=== PATIENT | female | born 1965 | race Caucasian/White ===

== ENCOUNTER 2018-06-04 02:33 | Observation (INO) ==
[2018-06-04] MEDS ORDERED: *HR* FentaNYL (PF) 100 MCG/2 ML VIAL IVP ONE (03:34)
[2018-06-04 03:54] LABS: Basophils # 0.1 K/mcL (0.0-0.2); Basophils % 1.1 %; Eosinophils # 0.3 K/mcL (0.0-0.6); Eosinophils % 4.9 %; Hematocrit 38.2 % (35.3-44.9); Hemoglobin 12.6 g/dL (11.5-15.4); Immature Granulocytes % 0.2 % (0-4); Lymphocytes % 34.3 %; Mean Corpuscular Hemoglobin 29.7 pg (28.0-33.3); Mean Corpuscular Volume 90.1 fL (83.0-100.0); Mean Platelet Volume 9.2 fL (9.4-12.4); Monocytes # 0.6 K/mcL (0.0-1.3); Monocytes % 10.9 %; Neutrophils # 2.8 K/mcL (1.6-8.9); Platelet Count 261 K/mcL (140-400); Red Blood Count 4.24 M/mcL (3.82-4.97); Segmented Neutrophils % 48.6 %
[2018-06-04 04:01] LABS: Prothrombin Time 11.5 Seconds (9.4-12.1)
--- NOTE | 2018-06-04 04:03 | Emergency Department Note ---
Disposition Clinical Impression: Syncope Qualifiers: Syncope type: unspecified Qualified Code(s): R55 - Syncope and collapse Disposition: Admitted As Inpatient Condition: Fair Syncope HPI - General Chief Complaint: ED Syncope Stated Complaint: SYNCOPE Time Seen by Provider: 06/04/18 02:34 Source: patient, family Mode of arrival: private vehicle Limitations: no limitations Nursing Notes Reviewed: Yes Vital Signs Reviewed: Yes - History of Present Illness HPI Narrative: 52-year-old female with a past medical history of asthma and acid reflux presents emergency department for evaluation of a syncopal episode. Patient states she was asleep and she got up in a cold sweat which is normal for her as she is menopausal, she was ambulated to the bathroom and the next thing she remembers was waking up on the floor with a "goose egg to my face" and a headache behind her left eye. Patient is unsure how long she was on the floor. She states when she woke up she was not confused, she was slightly nauseous. She has had no episodes of emesis. Patient states no history of syncope, orthostatic hypotension, vasovagal responses. She states she did restart her Zoloft today after not taking it for months. Patient denies recent illness, fever, chills, shortness of breath, dyspnea, coughing, and ear infections, abdominal pain, nausea, vomiting, diarrhea. Pt Subjective Complaint: loss of consciousness Onset (ago): Just [employer]POOL [employer]ER Prodromal Symptoms: none Witnessed: no Context: other (While walking after getting out of bed) Injuries Sustained Associated with Event: face Current Symptoms: headache History: none Treatments prior to arrival: none - Related Data Home Medications Medication Instructions Recorded Confirmed Fluticasone/Salmeterol [Advair 1 puff IH HS 09/29/17 06/04/18 100-50 Diskus] Ibuprofen [Ibuprofen] 800 mg PO TID PRN 09/29/17 06/04/18 Omeprazole [PriLOSEC] 20 mg PO DAILY 09/29/17 06/04/18 Allergies Allergy/AdvReac Type Severity Reaction Status Date / Time Cefaclor Allergy Difficulty Verified 06/04/18 07:09 Breathing All systems ED: reviewed and negative except as stated. Review of Systems: As Per HPI Past Medical History - Past Medical History Attestation: Yes The following information was validated with the patient. Source: patient Medical history: Reports: asthma, GERD Surgical history: Reports: Psychiatric history: Reports: no psych history - Social History Smoking Status: Never smoker Smokeless Tobacco Status: No Alcohol use: Reports: none Drug use: Reports: none Physical Exam - General Limitations: no limitations General appearance: alert, in no apparent distress - Expanded Head Exam Head exam physicial: Present: contusion, hematoma. Absent: laceration, abrasion , raccoon eyes, Li's sign, tenderness of temporal artery, CSF rhinorrhea, CSF otorrhea 1 - Slight swelling, ecchymosis, tenderness to touch. - Eye Eye exam: Present: normal appearance, PERRL, EOMI, periorbital swelling, periorbital tenderness. Absent: scleral icterus, conjunctival injection, nystagmus - ENT ENT exam: mucous membranes moist - Neck Neck exam: Present: normal inspection, full ROM, trachea midline, tenderness ( Paraspinally spine). Absent: meningismus - Chest Chest inspection: Present: normal inspection, symmetric chest wall rise - Respiratory Respiratory exam: Present: normal lung sounds bilaterally - Cardiovascular Cardiovascular exam: Present: regular rate, normal rhythm, normal heart sounds - Abdominal Exam Abdominal exam: Present: soft, Non-Tender, normal bowel sounds. Absent: tenderness, distention, guarding, rebound, rigidity - Extremities Exam Extremities exam: Present: normal inspection, full ROM. Absent: tenderness, pedal edema - Expanded Lower Extremity Exam Neurovascular/Tendon exam: Absent: pulse deficit, motor deficit, sensory deficit , tendon deficit Gait: observed and normal - Back Exam Back exam: Present: normal inspection, full ROM. Absent: tenderness - Neurological Exam Neurological exam: Present: alert, oriented X3, CN II-XII intact, normal gait. Absent: motor sensory deficit - Expanded Neurological Exam Patient oriented to: Present: person, place, time Speech: Present: fluid speech Cerebellar function: normal gait Motor strength - LUE: 5/5 Motor strength - RUE: 5/5 Motor strength - LLE: 5/5 Motor strength - RLE: 5/5 Coma Scale Eye Opening: Spontaneous Coma Scale Motor Response: Obeys Commands Coma Scale Verbal Response: Oriented Coma Scale Total: 15 - Psychiatric Psychiatric exam: Present: normal affect, normal mood - Skin Skin exam: Present: warm, dry, intact, normal color Course Course Narrative: Nontoxic appearing female who is well-hydrated. Respirations are easy and even. Patient was placed in cervical collar due to complaints of neck pain with movement. Patient is alert and oriented 3, GCS 15, neurologically intact , finding gross motor skills intact. Left upper orbit/forehead with hematoma, tenderness to touch.PEARRL, EOMIs intact without signs of entrapment. Cervical paraspinal tenderness with palpation. Rest of physical exam benign. Glucose upon arrival 112, EKG revealed sinus rhythm with early repolarization, ventricle rate 73 bpm, MI interval 195 ms, QTC 402 ms. no previous EKG for comparison. Labs are benign. Chest x-ray is benign. Head CT without acute cranial abnormality, hematoma without fracture. Cervical spine without acute abnormality, release from c-collar with full range of motion, stiffness to paraspinal areas continues. Patient has been vitally stable, resting comfortably. Syncopal event without witnesses, unknown etiology. Discussed with patient possible causes of the, referred in for her to be matted to the hospital for continuing monitoring and evaluation by cardiology, patient is agreeable to plan of care. We will page hospitalist for admission to the hospital. Case discussed with Dr. Farrukh Wyatt with agreement to POC - Reevaluation(s) Reevaluation #1: Spoke with hospitalist regarding admission, acceptance to floor for further evaluation. Time: 06:15 Vital Signs Temperature 97.3 F L 06/04/18 02:34 Pulse Rate 70 06/04/18 02:34 Respiratory Rate 16 06/04/18 02:34 Blood Pressure 128/75 06/04/18 02:34 O2 Sat by Pulse Oximetry 98 06/04/18 02:34 Temperature 98.0 F 06/04/18 18:51 Pulse Rate 68 06/04/18 18:51 Respiratory Rate 14 06/04/18 20:31 Blood Pressure 130/77 06/04/18 18:51 O2 Sat by Pulse Oximetry 98 06/04/18 20:31 Oxygen Delivery Oxygen Delivery Room Air Syncope - Differential Diagnosis Likely: syncope due to orthostatic hypotension, vasovagal syncope, dehydration/ metabolic disorder, trauma secondary to event. Unlikely: complete atrioventricular block, intracerebral hemorrhage, pulmonary embolism - Lab Data Lab results reviewed: Yes I reviewed the patient's lab results. Result diagrams: 06/04/18 03:37 06/04/18 03:37 Lab Results 06/04/18 06/04/18 06/04/18 Range/Units 03:05 03:37 03:37 WBC 5.7 (4.3-11.1) K/mcL RBC 4.24 (3.82-4.97) M/mcL Hgb 12.6 (11.5-15.4) g/dL Hct 38.2 (35.3-44.9) % MCV 90.1 (83.0-100.0) fL MCH 29.7 (28.0-33.3) pg MCHC 33.0 (31.6-35.5) g/dL RDW 12.0 (11.5-14.5) % Plt Count 261 (140-400) K/mcL MPV 9.2 L (9.4-12.4) fL Immature Gran % 0.2 (0-4) % Seg Neutrophils % 48.6 % Lymphocytes % 34.3 % Monocytes % 10.9 % Eosinophils % 4.9 % Basophils % 1.1 % Neutrophils # 2.8 (1.6-8.9) K/mcL Lymphocytes # 2.0 (0.6-4.6) K/mcL Monocytes # 0.6 (0.0-1.3) K/mcL Eosinophils # 0.3 (0.0-0.6) K/mcL Basophils # 0.1 (0.0-0.2) K/mcL PT 11.5 (9.4-12.1) Seconds INR 1.0 APTT 29.2 (26.0-36.0) Seconds Sodium (136-145) mEq/L Potassium (3.5-5.1) mEq/L Chloride (98-107) mEq/L Carbon Dioxide (23-29) mEq/L BUN (6-20) mg/dL Creatinine (0.60-1.20) mg/dL Est GFR ( Amer) (> 60) Est GFR (Non-Af Amer) (> 60) BUN/Creatinine Ratio (6-26) Glucose (70-105) mg/dL POC Glucose 112 H (70-99) mg/dL Calculated Osmolality (280-300) Calcium (8.6-10.3) mg/dL Troponin I (< 0.04) ng/mL 06/04/18 Range/Units 03:37 WBC (4.3-11.1) K/mcL RBC (3.82-4.97) M/mcL Hgb (11.5-15.4) g/dL Hct (35.3-44.9) % MCV (83.0-100.0) fL MCH (28.0-33.3) pg MCHC (31.6-35.5) g/dL RDW (11.5-14.5) % Plt Count (140-400) K/mcL MPV (9.4-12.4) fL Immature Gran % (0-4) % Seg Neutrophils % % Lymphocytes % % Monocytes % % Eosinophils % % Basophils % % Neutrophils # (1.6-8.9) K/mcL Lymphocytes # (0.6-4.6) K/mcL Monocytes # (0.0-1.3) K/mcL Eosinophils # (0.0-0.6) K/mcL Basophils # (0.0-0.2) K/mcL PT (9.4-12.1) Seconds INR APTT (26.0-36.0) Seconds Sodium 138 (136-145) mEq/L Potassium 3.8 (3.5-5.1) mEq/L Chloride 104 (98-107) mEq/L Carbon Dioxide 25 (23-29) mEq/L BUN 19 (6-20) mg/dL Creatinine 0.76 (0.60-1.20) mg/dL Est GFR ( Amer) > 60 (> 60) Est GFR (Non-Af Amer) > 60 (> 60) BUN/Creatinine Ratio 25 (6-26) Glucose 116 H (70-105) mg/dL POC Glucose (70-99) mg/dL Calculated Osmolality 289 (280-300) Calcium 9.8 (8.6-10.3) mg/dL Troponin I < 0.03 (< 0.04) ng/mL - Radiology Data Radiology results reviewed: Yes I reviewed the patient's radiology results. Chest X-Ray 06/04/18 02:37 IMPRESSION: 1. No acute cardiopulmonary disease. D/ / Brenden Parker MD / Brenden Parker MD Interpreting Provider: Brenden Parker MD Cervical Spine CT 06/04/18 03:32 IMPRESSION: No acute abnormality of the cervical spine. D/ / Juan Carlos Singh MD / Juan Carlos Singh MD Interpreting Provider: Juan Carlos Singh MD Head CT 06/04/18 03:32 IMPRESSION: Left supraorbital scalp hematoma with no acute intracranial abnormality. Bilateral sinus disease. D/ / Juan Carlos Singh MD / Juan Carlos Singh MD Interpreting Provider: Juan Carlos Singh MD - EKG Data EKG attestation: Yes I reviewed and interpreted this EKG.
[2018-06-04 04:04] LABS: Activated Partial Thrombo Time 29.2 Seconds (26.0-36.0)
[2018-06-04 04:21] LABS: BUN/Creatinine Ratio 25 (6-26); Blood Urea Nitrogen 19 mg/dL (6-20); Calcium 9.8 mg/dL (8.6-10.3); Carbon Dioxide 25 mEq/L (23-29); Chloride 104 mEq/L (98-107); Glucose 116 mg/dL (70-105); Osmolality,Calculated 289 (280-300); Potassium 3.8 mEq/L (3.5-5.1); Sodium 138 mEq/L (136-145); Troponin I < 0.03 ng/mL (< 0.04); eGFR For Non-African Americans > 60 (> 60)
[2018-06-04] MEDS ORDERED: Ondansetron 4 MG/2 ML VIAL IVP ONE (05:08)
[2018-06-04] MEDS ORDERED: Orphenadrine 100 MG TABLET.ER PO ONE ×2 (05:22→16:02)
--- NOTE | 2018-06-04 06:07 | Emergency Department Note ---
Disposition Clinical Impression: Syncope Disposition: Still a Patient Condition: Fair Referrals: Ean Durbin Jr, MD [Primary Care Provider] - Forms: ED Satisfaction Letter General Adult HPI - General Chief complaint: ED Syncope Stated complaint: SYNCOPE Time Seen by Provider: 06/04/18 02:34 Source: patient, family Mode of arrival: private vehicle Limitations: no limitations Nursing Notes Reviewed: Yes Vital Signs Reviewed: Yes - History of Present Illness Pain Scale: 3 - Related Data Home Medications Medication Instructions Recorded Confirmed Ethinyl Estradiol/Drospirenone 1 each PO DAILY 09/29/17 09/29/17 [Parris 28 Tablet] Fluticasone/Salmeterol [Advair 1 puff IH BID 09/29/17 09/29/17 100-50 Diskus] Ibuprofen [Ibuprofen] 800 mg PO TID 09/29/17 09/29/17 Levalbuterol Tartrate 2 puff IH Q6H PRN 09/29/17 09/29/17 [Levalbuterol Tartrate Hfa] Omeprazole [PriLOSEC] 20 mg PO DAILY 09/29/17 09/29/17 Allergies Allergy/AdvReac Type Severity Reaction Status Date / Time Cefaclor Allergy Difficulty Verified 06/04/18 02:34 Breathing Past Medical History - Past Medical History Medical history: Reports: asthma, GERD Surgical history: Reports: Psychiatric history: Reports: no psych history - Social History Smoking Status: Never smoker Smokeless Tobacco Status: No Alcohol use: Reports: none Drug use: Reports: none Physical Exam - General Limitations: no limitations General appearance: alert, in no apparent distress Course Vital Signs Temperature 97.3 F L 06/04/18 02:34 Pulse Rate 70 06/04/18 02:34 Respiratory Rate 16 06/04/18 02:34 Blood Pressure 128/75 06/04/18 02:34 O2 Sat by Pulse Oximetry 98 06/04/18 02:34 Temperature 97.3 F L 06/04/18 02:34 Pulse Rate 80 06/04/18 05:30 Respiratory Rate 16 06/04/18 04:33 Blood Pressure 132/84 06/04/18 05:30 O2 Sat by Pulse Oximetry 98 06/04/18 04:33 Oxygen Delivery Oxygen Delivery Room Air Medical Decision Making - Lab Data Result diagrams: 06/04/18 03:37 06/04/18 03:37 Lab Results 06/04/18 06/04/18 06/04/18 Range/Units 03:05 03:37 03:37 WBC 5.7 (4.3-11.1) K/mcL RBC 4.24 (3.82-4.97) M/mcL Hgb 12.6 (11.5-15.4) g/dL Hct 38.2 (35.3-44.9) % MCV 90.1 (83.0-100.0) fL MCH 29.7 (28.0-33.3) pg MCHC 33.0 (31.6-35.5) g/dL RDW 12.0 (11.5-14.5) % Plt Count 261 (140-400) K/mcL MPV 9.2 L (9.4-12.4) fL Immature Gran % 0.2 (0-4) % Seg Neutrophils % 48.6 % Lymphocytes % 34.3 % Monocytes % 10.9 % Eosinophils % 4.9 % Basophils % 1.1 % Neutrophils # 2.8 (1.6-8.9) K/mcL Lymphocytes # 2.0 (0.6-4.6) K/mcL Monocytes # 0.6 (0.0-1.3) K/mcL Eosinophils # 0.3 (0.0-0.6) K/mcL Basophils # 0.1 (0.0-0.2) K/mcL PT 11.5 (9.4-12.1) Seconds INR 1.0 APTT 29.2 (26.0-36.0) Seconds Sodium (136-145) mEq/L Potassium (3.5-5.1) mEq/L Chloride (98-107) mEq/L Carbon Dioxide (23-29) mEq/L BUN (6-20) mg/dL Creatinine (0.60-1.20) mg/dL Est GFR ( Amer) (> 60) Est GFR (Non-Af Amer) (> 60) BUN/Creatinine Ratio (6-26) Glucose (70-105) mg/dL POC Glucose 112 H (70-99) mg/dL Calculated Osmolality (280-300) Calcium (8.6-10.3) mg/dL Troponin I (< 0.04) ng/mL 08/09/18 Range/Units 03:37 WBC (4.3-11.1) K/mcL RBC (3.82-4.97) M/mcL Hgb (11.5-15.4) g/dL Hct (35.3-44.9) % MCV (83.0-100.0) fL MCH (28.0-33.3) pg MCHC (31.6-35.5) g/dL RDW (11.5-14.5) % Plt Count (140-400) K/mcL MPV (9.4-12.4) fL Immature Gran % (0-4) % Seg Neutrophils % % Lymphocytes % % Monocytes % % Eosinophils % % Basophils % % Neutrophils # (1.6-8.9) K/mcL Lymphocytes # (0.6-4.6) K/mcL Monocytes # (0.0-1.3) K/mcL Eosinophils # (0.0-0.6) K/mcL Basophils # (0.0-0.2) K/mcL PT (9.4-12.1) Seconds INR APTT (26.0-36.0) Seconds Sodium 138 (136-145) mEq/L Potassium 3.8 (3.5-5.1) mEq/L Chloride 104 (98-107) mEq/L Carbon Dioxide 25 (23-29) mEq/L BUN 19 (6-20) mg/dL Creatinine 0.76 (0.60-1.20) mg/dL Est GFR ( Amer) > 60 (> 60) Est GFR (Non-Af Amer) > 60 (> 60) BUN/Creatinine Ratio 25 (6-26) Glucose 116 H (70-105) mg/dL POC Glucose (70-99) mg/dL Calculated Osmolality 289 (280-300) Calcium 9.8 (8.6-10.3) mg/dL Troponin I < 0.03 (< 0.04) ng/mL Attestation Statement - Attestation Attestation: I, Jorge Wyatt, examined this patient and my medical decision-making was reviewed with the CUSTOMER EXPERIENCE RETAIL CLERK/PA/Advanced Practice Nurse/Resident Physician. I agree with the documented findings, disposition and treatment plan as described except to the extent set forth below. 52-year-old female presents emergency Department with concerns of a syncopal event. Patient states she woke during the night, tried to walk to the bathroom and syncopized and woke on the ground. Patient has pain to the left periorbital area with obvious ecchymosis and edema. There is no restriction to extraocular eye movement on range of motion. No history of vasovagal episode in the past. Patient denied chest pain or shortness of breath. She did mention that she took a Zoloft last night after not having taken it for a while. Patient will be admitted to the hospital for further care and evaluation.
--- NOTE | 2018-06-04 08:26 | Internal Med History&Physical ---
Date of Encounter: 06/04/18 Time of Encounter: 08:24 Internal Medicine - H&P: HPI Chief complaint: syncope Admitted From: Emergency Dept Plans for Post Hospital Care: Home History of present illness: Ms. Hernández is a 52 year old female Patient with history of asthma, GERD, no cardiac event history in the past. Patient woke up feeling sweaty and some nausea and decided to go to the bathroom before she make it to the bathroom patient passed out then she got up and came and let the know what happenned that she has passed out and then brought into the emergency room has a mild left periorbital ecchymosis CT of the head was unremarkable EKG is normal troponin is negative patient been admitted for evaluation of syncope. Denies prior syncope no cardiac event history in the past no chest pain or shortness of breath. Past Med Surg Social Fam HX - Past Medical History Medical history: asthma, GERD Psychiatric history: no psych history - Past Surgical History Surgical History: Additional surgical history: tubal ligation - Social History Smoking Status: Never smoker Smokeless Tobacco Status: No Alcohol use: none Drug use: none Internal Medicine - H&P: Meds Fluticasone/Salmeterol [Advair 100-50 Diskus] 1 puff IH HS 09/29/17 [History] Ibuprofen [Ibuprofen] 800 mg PO TID PRN 09/29/17 [History] Omeprazole [PriLOSEC] 20 mg PO DAILY 09/29/17 [History] 3 Allergy/AdvReac Type Severity Reaction Status Date / Time Cefaclor Allergy Difficulty Verified 06/04/18 07:09 Breathing All Systems PM: A 10-system review of systems was performed and is negative for pertinent findings except as documented above in the HPI. - Constitutional Vitals: Temp Pulse Resp BP Pulse Ox 97.3 F L 74 15 110/89 98 06/04/18 02:34 06/04/18 07:44 06/04/18 07:44 06/04/18 07:44 06/04/18 07:44 - Head Head exam: Present: atraumatic, normocephalic - Eye Eye exam: Present: PERRL, conjuntiva pink, sclera anicteric Pupils: Present: PERRL - Neck Neck exam general surgery: Present: supple, trachea midline. Absent: lymphadenopathy - Respiratory Respiratory exam: Present: CTAB. Absent: accessory muscle use, rales, rhonchi, wheezes - Cardiovascular Cardiovascular exam: Present: RRR, +S1, +S2. Absent: diastolic murmur, gallop, rubs, systolic murmur - GI/Abdominal GI/Abdominal exam: Present: normal bowel sounds, soft, no peritoneal signs. Absent: distended, tenderness - Extremities Exam Extremities exam: Present: warm, radial pulses palpable and symmetrical. Absent : calf tenderness, cyanotic, pedal edema - Neurological Exam Neurological exam: Present: CN II-XII intact, oriented X3, no focal deficits. Absent: pronater drift, facial droop, speech deficit - Skin Skin exam: Present: dry, intact Internal Med - H&P Results - Labs CBC & Chem 7: 06/04/18 03:37 06/04/18 03:37 Labs: Short CBC 06/04/18 Range/Units 03:37 WBC 5.7 (4.3-11.1) K/mcL Hgb 12.6 (11.5-15.4) g/dL Hct 38.2 (35.3-44.9) % Plt Count 261 (140-400) K/mcL Neutrophils # 2.8 (1.6-8.9) K/mcL BMP 06/04/18 03:37 Sodium 138 Potassium 3.8 Chloride 104 Carbon Dioxide 25 BUN 19 Creatinine 0.76 Glucose 116 H Calcium 9.8 Cardiac Enzymes 06/04/18 Range/Units 03:37 Troponin I < 0.03 (< 0.04) ng/mL - Impressions ITS Impressions Chest X-Ray 06/04/18 02:37 IMPRESSION: 1. No acute cardiopulmonary disease. D/ / Brenden Parker MD / Brenden Parker MD Interpreting Provider: Brenden Parker MD Cervical Spine CT 06/04/18 03:32 IMPRESSION: No acute abnormality of the cervical spine. D/ / Juan Carlos Singh MD / Juan Carlos Singh MD Interpreting Provider: Juan Carlos Singh MD Head CT 06/04/18 03:32 IMPRESSION: Left supraorbital scalp hematoma with no acute intracranial abnormality. Bilateral sinus disease. D/ / Juan Carlos Singh MD / Juan Carlos Singh MD Interpreting Provider: Juan Carlos Singh MD - Assessment and plan (1) GERD (gastroesophageal reflux disease) Current Visit: Yes Status: Chronic Assessment and plan: Chronic we will continue home medication Qualifiers: Esophagitis presence: without esophagitis Qualified Code(s): K21.9 - Gastro -esophageal reflux disease without esophagitis (2) Syncope Current Visit: Yes Status: Acute Assessment and plan: Presentation presented with sweating, nausea and then passed out is suggestive of vasovagal syncope versus vasodepressive syncope patient admitted for syncope workup will obtain 2-D echo keep her on tele monitor and consult cardiology for further evaluation. Qualifiers: Syncope type: vasovagal syncope Qualified Code(s): R55 - Syncope and collapse - Time Spent With Patient Total time spent is greater than 50% in coordination of care (as documented) at patient's floor/unit and/or counseling patient:
[2018-06-04] MEDS ORDERED: Naloxone 0.4 MG/ML INJ IVP PRN (08:29)
[2018-06-04] MEDS ORDERED: Ibuprofen 800 MG TABLET PO PRN (08:32)
--- NOTE | 2018-06-04 09:44 | Cardiology Consult Note ---
Date of Encounter: 06/04/18 Time of Encounter: 09:44 Assessment and Plan (1) Syncope Current Visit: Yes Status: Acute Presented with syncopal event--felt nauseous and diaphoretic, got out of bed to walk to the bathroom and passed out. Possible vasovagal. Denies chest pain or dyspnea. Orthostatic vitals negative. Initial troponin negative. Denies prior cardiac hx. EKG no significant findings. Reports the only thing she did out of normal routine yesterday was took 50mg Zoloft tablet ~8PM. Was on Zoloft months ago, was restarting it to help with anxiety. Agree with TTE to evaluate structure and function. Will order for pt to be placed on telemetry to monitor for any underlying arrhythmias. Check Mag and TSH. K WNL. Continue to follow. Will discuss and review with Dr. Kearney. Qualifiers: Syncope type: unspecified Qualified Code(s): R55 - Syncope and collapse Discussion w patient/family: The assessment and plan as outlined above was discussed with the patient and/or family members who expressed understanding and agreement. All questions were answered. Thank you for involving us in the care of your patient. Please call with any questions. I will discuss and review with Dr. Kearney and make changes as necessary. History of Present Illness Consult date: 06/04/18 Requesting physician: Zee Mir Consult reason: syncope Chief complaint: syncope History of present illness: Ms. Cousins is a 52 year old female with PMH of asthma and GERD that presented to ED after an episode of syncope. Patient woke up ~1AM diaphoretic and nauseous , decided to go to the bathroom, but before she made it to the bathroom she passed out, unsure for how long. She was then brought into the ED. Of note, pt has left periorbital ecchymosis. CT of the head showed left supraorbital scalp hematoma with no acute intracranial abnormality. Bilateral sinus disease. EKG no significant findings and initial troponin negative. Pt denies prior hx of syncope. Denies cardiac hx or family cardiac hx. Reports the only thing she did different yesterday was took a 50mg Zoloft tablet for anxiety. She had not taken Zoloft for months, but was planning on restarting it to help with anxiety. Orthostatic vitals negative. Cardiology consulted for further recs. Pt denies chest pain or dyspnea, denies palpitations, dizziness or lightheadedness. Past Med Surg Social Fam HX - Past Medical History Medical history: asthma, GERD Psychiatric history: no psych history - Past Surgical History Surgical History: Additional surgical history: tubal ligation - Social History Smoking Status: Never smoker Smokeless Tobacco Status: No Alcohol use: none Drug use: none Medications and Allergies Fluticasone/Salmeterol [Advair 100-50 Diskus] 1 puff IH HS 09/29/17 [History] Ibuprofen [Ibuprofen] 800 mg PO TID PRN 09/29/17 [History] Omeprazole [PriLOSEC] 20 mg PO DAILY 09/29/17 [History] 3 Allergy/AdvReac Type Severity Reaction Status Date / Time Cefaclor Allergy Difficulty Verified 06/04/18 07:09 Breathing All Systems Review: The remainder of the systems were reviewed and are negative - Cardiovascular Cardiovascular: as per HPI, diaphoresis, syncope - Gastrointestinal Gastrointestinal: nausea - Neurological Neurological: syncope Physical Examination Vital Signs, Last 4 Hours Pulse Resp BP Pulse Ox 06/04/18 08:47 65 15 130/88 97 Vital Signs Temp Pulse Pulse Pulse Pulse Resp BP 06/04/18 08:47 65 15 130/88 06/04/18 07:44 74 15 110/89 06/04/18 05:30 80 76 96 06/04/18 04:33 74 16 132/76 06/04/18 02:34 97.3 F L 70 16 128/75 BP BP BP Pulse Ox 06/04/18 08:47 97 06/04/18 07:44 98 06/04/18 05:30 132/84 132/81 129/80 06/04/18 04:33 98 06/04/18 02:34 98 Intake and Output 06/03/18 06/04/18 06/04/18 23:59 07:59 15:59 Other: Weight 58.967 kg Blood Glucose* 112 Patient Weight 06/04/18 23:59 Weight 58.967 kg General: Conversant, No Apparent Distress HEENT: Atraumatic, Normocephaly, Mucus Membranes Moist Neck: No JVD, Normal carotid pulses Cardiac: Reg Rate and Rhythm, Normal S1 and S2, No Murmur Lungs: Normal Breath Sounds, No Wheeze, Rales, Rhonchi Neuro: Alert and responsive, No focal deficits noted Abdomen: Soft, Non-Tender Skin: No rashes noted on visualized skin Musculoskeletal: No Chest Wall Tenderness Extremities: No Clubbing, No Cyanosis, No Edema, Normal Pulses Results 06/04/18 03:37 06/04/18 03:37 Short CBC 06/04/18 Range/Units 03:37 WBC 5.7 (4.3-11.1) K/mcL Hgb 12.6 (11.5-15.4) g/dL Hct 38.2 (35.3-44.9) % Plt Count 261 (140-400) K/mcL Neutrophils # 2.8 (1.6-8.9) K/mcL BMP 06/04/18 Range/Units 03:37 Sodium 138 (136-145) mEq/L Potassium 3.8 (3.5-5.1) mEq/L Chloride 104 (98-107) mEq/L Carbon Dioxide 25 (23-29) mEq/L BUN 19 (6-20) mg/dL Creatinine 0.76 (0.60-1.20) mg/dL Glucose 116 H (70-105) mg/dL Calcium 9.8 (8.6-10.3) mg/dL Cardiac Enzymes 06/04/18 Range/Units 03:37 Troponin I < 0.03 (< 0.04) ng/mL Impressions Chest X-Ray 06/04/18 02:37 IMPRESSION: 1. No acute cardiopulmonary disease. D/ / Brenden Parker MD / Brenden Parker MD Interpreting Provider: Brenden Parker MD Cervical Spine CT 06/04/18 03:32 IMPRESSION: No acute abnormality of the cervical spine. D/ / Juan Carlos Singh MD / Juan Carlos Singh MD Interpreting Provider: Juan Carlos Singh MD Head CT 06/04/18 03:32 IMPRESSION: Left supraorbital scalp hematoma with no acute intracranial abnormality. Bilateral sinus disease. D/ / Juan Carlos Singh MD / Juan Carlos Singh MD Interpreting Provider: Juan Carlos Singh MD Active Medications Budesonide/Formoterol Fumarate (Symbicort) 2 puff IH HS VANESSA Stop: 12/04/18 21:01 Sodium Chloride (0.9 % Sodium Chloride) 1,000 mls @ 75 mls/hr IVC .[id number] VANESSA Stop: 06/05/18 11:09 Ibuprofen (Motrin) 800 mg PO TID PRN; Protocol PRN Reason: mild to moderate pain Stop: 12/04/18 08:33 Naloxone HCl (Narcan) 0.4 mg IVP Q2MIN PRN PRN Reason: SEE COMMENTS Stop: 12/04/18 08:30 Omeprazole (Prilosec) 20 mg PO DAILY VANESSA PRN Reason: Protocol Stop: 12/04/18 09:01 - EKG Interpretation EKG results cardiology: personally reviewed Consult Discharge Plan - Plan Referrals: Ean Durbin Jr, MD [Primary Care Provider] -
[2018-06-04] MEDS: 0.9 % Sodium Chloride 1,000 ML IVC SCH ×2 (10:05→23:38)
[2018-06-04 10:13] LABS: Chol/HDL Ratio 3.6 (0-4.9); Cholesterol 250 mg/dL (< 200); HDL Cholesterol 70 mg/dL (40-59); LDL Cholesterol,Calculated 169 mg/dL (0-99); Triglycerides 56 mg/dL (< 150)
[2018-06-04 10:14] LABS: Troponin I < 0.03 ng/mL (< 0.04)
--- NOTE | 2018-06-04 16:22 | Electrocardiograph Report ---
[place] [id number] Test Date: 2018-06-04 Pat Name: Reba Hernández Department: 104 Room: [facility] Gender: F Recoater: LOIS : 1965 Requested By: Jorge Wyatt Order Number: [id number] Reading MD: Lisa Thibodeaux Measurements Intervals [place] Rate: 73 P: 81 WY: 195 QRS: 66 QRSD: 94 T: 72 QT: 376 QTc: 402 Interpretive Statements SINUS RHYTHM EARLY REPOLARIZATION [ST ELEVATION WITH NORMALLY INFLECTED T WAVE] Electronically Signed On 06-04-2018 16:20:23 EDT by Lisa Thibodeaux
[2018-06-04] MEDS ORDERED: Budesonide/Formoterol 80/4.5 MDI IH SCH (21:00)
[2018-06-05 09:15] LABS: Magnesium 2.1 mg/dL (1.6-2.6)
[2018-06-05 09:28] LABS: Thyroid Stimulating Hormone 2.498 mcIU/mL (0.340-5.600)
[2018-06-05] MEDS ORDERED: 0.9 % Sodium Chloride 1,000 ML IVC SCH (10:15)
[2018-06-05 12:07] VITALS: BP 146/87
--- NOTE | 2018-06-05 12:36 | Cardiology Progress Note ---
Date of Encounter: 06/05/18 Time of Encounter: 12:15 Assessment and Plan (1) Syncope Current Visit: Yes Status: Acute Presented with syncopal event--felt nauseous and diaphoretic, got out of bed to walk to the bathroom and passed out. Denies chest pain or dyspnea. Orthostatic vitals negative. Initial troponin negative. Denies prior cardiac hx. EKG no significant findings. Reports the only thing she did out of normal routine yesterday was took 50mg Zoloft tablet ~8PM. Was on Zoloft months ago, was restarting it to help with anxiety. Electrolytes normal. TSH normal. No events noted on telemetry review overnight. No arrhythmias noted. TTE: LVEF 60%, mild LVDD, mild MR, mild-moderate TR, no PH, normal wall motion. Suspect likely orthostasis. Lifestyle modifications discussed including slow position changes, dangling legs prior to sitting up, and staying well hydrated. Recommend follow-up with PCP. Qualifiers: Syncope type: unspecified Qualified Code(s): R55 - Syncope and collapse Discussion w patient/family: The assessment and plan as outlined above was discussed with the patient and/or family members who expressed understanding and agreement. All questions were answered. Thank you for involving us in the care of your patient. Please call with any questions. The patient will be discussed and reviewed with Dr. Kearney; Cardiology will sign-off, recommend follow-up with PCP in the outpatient setting. Subjective Principal diagnosis: Syncope Interval history: Seen and examined. No complaints overnight. No recurrent syncope or pre-syncopal symptoms. Objective Vital Signs, Last 4 Hours Temp Pulse Resp BP Pulse Ox 06/05/18 12:03 98.2 F 66 15 146/87 96 06/05/18 09:26 97 General: Conversant, No Apparent Distress HEENT: Normocephaly, Mucus Membranes Moist, Other (left orbital edema/ecchymosis ) Neck: No JVD, Normal carotid pulses Cardiac: Reg Rate and Rhythm, Normal S1 and S2, No Murmur Lungs: Normal Breath Sounds, No Wheeze, Rales, Rhonchi Neuro: Alert and responsive, No focal deficits noted Abdomen: Soft, Non-Tender Skin: No rashes noted on visualized skin Musculoskeletal: No Chest Wall Tenderness Extremities: No Clubbing, No Cyanosis, No Edema, Normal Pulses Results 06/04/18 03:37 06/04/18 03:37 Active Medications Budesonide/Formoterol Fumarate (Symbicort) 2 puff IH HS VANESSA Stop: 12/04/18 21:01 Last Admin: 06/04/18 20:29 Dose: 2 puff Sodium Chloride (0.9 % Sodium Chloride) 1,000 mls @ 125 mls/hr IVC .Q8H VANESSA Stop: 12/05/18 10:16 Ibuprofen (Motrin) 800 mg PO TID PRN; Protocol PRN Reason: mild to moderate pain Stop: 12/04/18 08:33 Last Admin: 06/04/18 14:57 Dose: 800 mg Naloxone HCl (Narcan) 0.4 mg IVP Q2MIN PRN PRN Reason: SEE COMMENTS Stop: 12/04/18 08:30 Omeprazole (Prilosec) 20 mg PO DAILY VANESSA PRN Reason: Protocol Stop: 12/04/18 09:01 Last Admin: 06/05/18 09:17 Dose: 20 mg - Imaging and Cardiology Echo: report reviewed Other Results: 12 hour tele: avg HR=68 SR. No events noted. - EKG Interpretation EKG results cardiology: personally reviewed Consult Discharge Plan - Plan Referrals: Ean Durbin Jr, MD [Primary Care Provider] -
--- NOTE | 2018-06-05 12:51 | Discharge Summary ---
- NOTES TO OUTPATIENT PROVIDER Notes to Outpatient Provider: Follow up with PCP next week as already scheduled. Recheck BMP, CBC, and blood pressure at that time. Follow up with cardiology as needed. Date of Encounter: 06/05/18 Time of Encounter: 12:49 - Discharge Diagnosis (1) Syncope Priority: Primary Status: Resolved Qualifiers: Syncope type: unspecified Qualified Code(s): R55 - Syncope and collapse (2) Asthma Priority: Secondary Status: Acute Qualifiers: Asthma severity: unspecified severity Asthma persistence: unspecified Asthma complication type: uncomplicated Qualified Code(s): J45.909 - Unspecified asthma, uncomplicated (3) GERD (gastroesophageal reflux disease) Priority: Secondary Status: Chronic Qualifiers: Esophagitis presence: without esophagitis Qualified Code(s): K21.9 - Gastro -esophageal reflux disease without esophagitis (4) DVT prophylaxis Priority: Secondary Status: Acute Hospital course: Ms. Hernández is a 52 year old female admitted for syncope. She was admitted for observation to general medical floor with telemetry. She was started on IVF for possible orthostatic hypotension. Cardiology was consulted. They agreed that this was likely orthostasis. They discussed lifestyle modifications with her. Patient experienced no further episodes of syncope after admission. ECHO showed EF of 60% with mild LV diastolic dysfunction, normal RV structure and function, mild mitral regurgitation, mild-moderate tricuspid regurgitation, and no pulmonary hypertension. Patient wants to go home. She will follow up with PCP next week as scheduled. Repeat BMP, CBC, and blood pressure can be checked at that time. Patient has met maximum benefit of this hospitalization and will be discharged home in stable condition. Discharge discussed with: patient, family, nurse - Time Spent with Patient Total time spent providing and/or coordinating discharge services: Less than 30 minutes - Discharge Medications Home Medications: Fluticasone/Salmeterol [Advair 100-50 Diskus] 1 puff IH HS 09/29/17 [History] Ibuprofen 800 mg PO TID PRN 09/29/17 [History] Omeprazole [PriLOSEC] 20 mg PO DAILY 09/29/17 [History] Allergies/Adverse Reactions: 3 Allergy/AdvReac Type Severity Reaction Status Date / Time Cefaclor Allergy Difficulty Verified 06/04/18 07:09 Breathing Date of admission: 06/04/18 08:35 Primary care physician: Ean Durbin Jr, MD Consults: Cardiology Discharging clinician: Ash Card Anticipated date of discharge: 06/05/18 - Constitutional Vitals: Temp Pulse Resp BP Pulse Ox 98.2 F 66 15 146/87 96 06/05/18 12:03 06/05/18 12:03 06/05/18 12:03 06/05/18 12:03 06/05/18 12:03 General appearance: Present: cooperative, A&O X 3, pleasant, no acute distress, answers questions appropriately - Respiratory Respiratory exam: Present: CTAB. Absent: accessory muscle use, rales, rhonchi, wheezes Additional comments: Normal WOB - Cardiovascular Cardiovascular exam: Present: RRR, +S1, +S2. Absent: diastolic murmur, gallop, rubs, systolic murmur Additional comments: No BLE edema - GI/Abdominal GI/Abdominal exam: Present: normal bowel sounds, soft. Absent: distended, hepatomegaly, mass, splenomegaly, tenderness - Psychiatric Psychiatric exam: Present: normal affect, normal mood. Absent: agitated, anxious, depressed - Skin Skin exam: Present: dry, intact, warm. Absent: cyanosis, erythema, rash - Patient Status Disposition: Home, Self-Care Condition: Good Functional capacity at discharge: independent ambulation Overall status at discharge: patient is back to baseline - Discharge Instructions Follow Up With: Ean Durbin Jr, MD [Primary Care Provider] - Additional Instructions: Follow up with PCP next week as already scheduled. Recheck BMP, CBC, and blood pressure at that time. Follow up with cardiology as needed. - Diet and Activity Activity: resume usual activities as tolerated Diet: advance to your usual diet - VTE Documentation of Mechanical Device: Intermittent pneumatic compression device
== END 2018-06-05 13:48 | disposition home or self-care (01) ==
LOC: 3NENU 02:33 → EMEROO 02:33 → 3NENU 09:40
PROVIDERS: ADMIT Family Medicine; ATTEND Family Medicine